=== PATIENT | male | born 1960 | race Caucasian/White ===

== ENCOUNTER 2018-09-14 12:08 | Emergency (ER) | payer BC ==
[~2018-09-14] VITALS: Ht 185.4 cm; Wt 83.9 kg
--- NOTE | 2018-09-14 13:20 | ED General ---
General Chief Complaint: Dizziness/Syncope Stated Complaint: WAS UNRESPONSIVE Source of Information: Patient Exam Limitations: No Limitations History of Present Illness Date Seen by Provider: Sep 14, 2018 Time Seen by Provider: 13:17 Initial Comments To ER per private vehicle accompanied by his with reports of a episode of loss of consciousness. His picked him up from work at shortly after 11, they then ran several errands. She had to go get groceries. When she got out from getting groceries she states that she looked over at her and he was about to light up a cigarette. Immediately after that his head slumped forward and he was unable to be aroused for about 5 minutes. Upon awakening spontaneously he stated that he "didn't feel right". This occurred at about noon today. He's never had this before. He feels completely normal at this time. He denies any sensation of palpitations shortness of breath chest pain or headache immediately prior to the loss of consciousness. He states that it's been a long week at work and he felt tired. He takes no medications. He does smoke 1 pack of cigarettes daily and he does drink 2-6 beers every day. Timing/Duration: 1 Hour Severity: Moderate Associated Systoms: No Chest Pain, No Cough, No Diaphoresis, No Fever/Chills, No Headaches, No Loss of Appetite, No Malaise, No Nausea/Vomiting, No Rash, No Seizure, No Shortness of Air; Syncope; No Weakness Allergies and Home Medications Patient Home Medication List Home Medication List Reviewed: Yes Review of Systems Review of Systems Constitutional: see HPI EENTM: see HPI Respiratory: no symptoms reported Cardiovascular: no symptoms reported Genitourinary: no symptoms reported Musculoskeletal: no symptoms reported Skin: no symptoms reported Psychiatric/Neurological: See HPI; Denies Tremors Hematologic/Lymphatic: No Symptoms Reported Immunological/Allergic: no symptoms reported Physical Exam Vital Signs Vital Signs - First Documented 09/14/18 13:15 Temp 97.4 Pulse 71 Resp 20 B/P (MAP) 171/97 (121) Pulse Ox 98 O2 Delivery Room Air Capillary Refill : Height, Weight, BMI Height: '" Weight: lbs. oz. kg; BMI Method: General Appearance: No Apparent Distress, WD/WN Eyes: Bilateral Eye Normal Inspection, Bilateral Eye PERRL, Bilateral Eye EOMI HEENT: PERRL/EOMI, TMs Normal Neck: Full Range of Motion, Normal Inspection Respiratory: No Accessory Muscle Use, No Respiratory Distress Cardiovascular: Regular Rate, Rhythm, Normal Peripheral Pulses Gastrointestinal: Normal Bowel Sounds, Non Tender, Soft Extremity: Normal Capillary Refill, Normal Inspection Neurologic/Psychiatric: Alert, Oriented x3 Skin: Normal Color, Warm/Dry Progress/Results/Core Measures Suspected Sepsis SIRS Temperature: Pulse: Respiratory Rate: Laboratory Tests 09/14/18 13:41: White Blood Count 8.8 Blood Pressure / Mean: Laboratory Tests 09/14/18 13:41: Creatinine 0.91, Platelet Count 224, Total Bilirubin 0.5 Results/Orders Lab Results Laboratory Tests Test 09/14/18 13:41 Range/Units White Blood Count 8.8 4.3-11.0 10^3/uL Red Blood Count 4.24 L 4.35-5.85 10^6/uL Hemoglobin 14.7 13.3-17.7 G/DL Hematocrit 41 40-54 % Mean Corpuscular Volume 97 80-99 FL Mean Corpuscular Hemoglobin 35 H 25-34 PG Mean Corpuscular Hemoglobin Concent 36 32-36 G/DL Red Cell Distribution Width 13.2 10.0-14.5 % Platelet Count 224 130-400 10^3/uL Mean Platelet Volume 9.5 7.4-10.4 FL Neutrophils (%) (Auto) 70 42-75 % Lymphocytes (%) (Auto) 20 12-44 % Monocytes (%) (Auto) 8 0-12 % Eosinophils (%) (Auto) 2 0-10 % Basophils (%) (Auto) 0 0-10 % Neutrophils # (Auto) 6.1 1.8-7.8 X 10^3 Lymphocytes # (Auto) 1.8 1.0-4.0 X 10^3 Monocytes # (Auto) 0.7 0.0-1.0 X 10^3 Eosinophils # (Auto) 0.1 0.0-0.3 10^3/uL Basophils # (Auto) 0.0 0.0-0.1 10^3/uL Sodium Level 138 135-145 MMOL/L Potassium Level 4.1 3.6-5.0 MMOL/L Chloride Level 103 98-107 MMOL/L Carbon Dioxide Level 22 21-32 MMOL/L Anion Gap 13 5-14 MMOL/L Blood Urea Nitrogen 12 7-18 MG/DL Creatinine 0.91 0.60-1.30 MG/DL Estimat Glomerular Filtration Rate > 60 BUN/Creatinine Ratio 13 Glucose Level 92 70-105 MG/DL Calcium Level 9.1 8.5-10.1 MG/DL Corrected Calcium 8.9 8.5-10.1 MG/DL Magnesium Level 2.2 1.8-2.4 MG/DL Total Bilirubin 0.5 0.1-1.0 MG/DL Aspartate Amino Transf (AST/SGOT) 22 5-34 U/L Alanine Aminotransferase (ALT/SGPT) 19 0-55 U/L Alkaline Phosphatase 48 40-136 U/L Total Protein 7.4 6.4-8.2 GM/DL Albumin 4.3 3.2-4.5 GM/DL My Orders Orders - HOANG MADDOX APRN Cbc With Automated Diff (09/14/18 13:16) Comprehensive Metabolic Panel (09/14/18 13:16) Magnesium (09/14/18 13:16) Ekg Tracing (09/14/18 13:16) Troponin I (09/14/18 13:16) Iv Heplock-Insert (Order) (09/14/18 13:16) Ct Head Wo (09/14/18 13:16) Chest 1 View, Ap/Pa Only (09/14/18 13:16) Alcohol (09/14/18 13:16) Vital Signs/I&O 09/14/18 13:15 Temp 97.4 Pulse 71 Resp 20 B/P (MAP) 171/97 (121) Pulse Ox 98 O2 Delivery Room Air Capillary Refill : Departure Impression Primary Impression: History of loss of consciousness Disposition: 01 HOME, SELF-CARE Condition: Stable Departure-Patient Inst. Decision time for Depature: 14:16 Referrals: NO,LOCAL PHYSICIAN (PCP/Family) Primary Care Physician Patient Instructions: Syncope (Fainting) (DC) Add. Discharge Instructions: 1. Return to ER for any concerns 2. Follow-up with your doctor next week 3. All discharge instructions reviewed with patient and/or family. Voiced understanding. HOANG MADDOX APRN Sep 14, 2018 13:20
[2018-09-14 13:51] LABS: BASOPHILS % (AUTO) 0 % (0-10); EOSINOPHILS # (AUTO) 0.1 10^3/uL (0.0-0.3); EOSINOPHILS % (AUTO) 2 % (0-10); HEMATOCRIT 41 % (40-54); HEMOGLOBIN 14.7 G/DL (13.3-17.7); LYMPHOCYTES # (AUTO) 1.8 X 10^3 (1.0-4.0); LYMPHOCYTES % (AUTO) 20 % (12-44); MEAN CORPUSCULAR HEMOGLOBIN 35 PG (25-34); MEAN CORPUSCULAR HGB CONC 36 G/DL (32-36); MEAN CORPUSCULAR VOLUME 97 FL (80-99); MEAN PLATELET VOLUME 9.5 FL (7.4-10.4); MONOCYTES # (AUTO) 0.7 X 10^3 (0.0-1.0); MONOCYTES % (AUTO) 8 % (0-12); NEUTROPHILS # (AUTO) 6.1 X 10^3 (1.8-7.8); NEUTROPHILS % (AUTO) 70 % (42-75); PLATELET COUNT 224 10^3/uL (130-400); RED BLOOD COUNT 4.24 10^6/uL (4.35-5.85); RED CELL DISTRIBUTION WIDTH 13.2 % (10.0-14.5); WHITE BLOOD COUNT 8.8 10^3/uL (4.3-11.0)
--- NOTE | 2018-09-14 13:59 | Diagnostic Imaging Report ---
INDICATION: Unresponsive episode. TECHNIQUE: Routine non contrast-enhanced axial images were obtained from the skull base to the vertex. COMPARISON: None. FINDINGS: The ventricles and cortical sulci are diffusely prominent, compatible with age-related volume loss. Prominent CSF spaces also noted within the posterior fossa. There is no midline shift or mass-effect. No acute intra-axial hemorrhage is seen. There are no abnormal areas of increased or decreased density to suggest acute hemorrhage or edema. No extra-axial masses or collections are present. The bony calvarium is intact. The visualized paranasal sinuses are unremarkable. The mastoid air cells are clear. IMPRESSION: 1. No acute intracranial abnormality. No CT evidence of mass, acute infarct or intracranial hemorrhage. 2. Background of age-related parenchymal volume loss. 3. Prominent CSF space within the posterior fossa. Differential includes arachnoid cyst or ender cisterna magna. Dictated by: Dictated on workstation # [id number]
--- NOTE | 2018-09-14 14:05 | Diagnostic Imaging Report ---
INDICATION: Syncopal episode, passed out.. TECHNIQUE: Single view chest 2:17 PM. CORRELATION STUDY: None FINDINGS: The heart size, mediastinal configuration and pulmonary vascularity are within normal limits. The lungs are clear with no consolidating infiltrate. There is no significant effusion or pneumothorax. IMPRESSION: 1. Negative appearing portable chest. Dictated by: Dictated on workstation # [id number]
[2018-09-14 14:15] LABS: ALANINE AMINOTRANSFERASE 19 U/L (0-55); ALBUMIN 4.3 GM/DL (3.2-4.5); ALKALINE PHOSPHATASE 48 U/L (40-136); BILIRUBIN,TOTAL 0.5 MG/DL (0.1-1.0); BUN/CREATININE RATIO 13; CALCIUM 9.1 MG/DL (8.5-10.1); CARBON DIOXIDE 22 MMOL/L (21-32); CHLORIDE 103 MMOL/L (98-107); CREATININE SERUM 0.91 MG/DL (0.60-1.30); GFR ESTIMATED > 60; GLUCOSE 92 MG/DL (70-105); MAGNESIUM 2.2 MG/DL (1.8-2.4); POTASSIUM 4.1 MMOL/L (3.6-5.0); SODIUM 138 MMOL/L (135-145); TOTAL PROTEIN 7.4 GM/DL (6.4-8.2)
[2018-09-14 14:45] VITALS: BP 172/102
== END 2018-09-14 14:45 | disposition home or self-care (01) ==
LOC: EDUNIT# 12:08 → ER 12:09
DX: R55 Syncope and collapse (principal); F17.210 Nicotine dependence, cigarettes, uncomplicated
CPT/HCPCS: 36415; 70450; 71045; 80053; 80320; 83735; 84484; 85025; 93005

== ENCOUNTER 2021-03-22 09:00 | Day surgery (SDC) | payer SELFPAY ==
[2021-03-22] VITALS (12 sets, daily range): BP systolic 124–167; BP diastolic 77–114
[~2021-03-22] VITALS: Ht 188 cm; Wt 86.5 kg
[2021-03-22 07:23] LABS: HEMOGLOBIN 16.6 g/dL (13.3-17.7); MEAN PLATELET VOLUME 9.8 fL (9.0-12.2); WHITE BLOOD COUNT 8.8 10^3/uL (4.3-11.0)
--- NOTE | 2021-03-22 07:48 | Diagnostic Imaging Report ---
INDICATION: Hypertension, ischemic foot, abnormal ankle-brachial indices COMPARISON: 09/14/2018 TECHNIQUE: Single radiograph of the chest dated 03/22/2021. FINDINGS: The cardiac silhouette is within normal limits in size. No significant pulmonary vascular congestion. The lungs are clear. No pleural effusion. No pneumothorax. No acute osseous abnormality. IMPRESSION: No acute cardiopulmonary abnormality. Dictated by: Dictated on workstation # [id number]
[2021-03-22 07:54] LABS: PROTHROMBIN TIME PATIENT 13.9 SEC (12.2-14.7)
[2021-03-22 07:59] LABS: ALANINE AMINOTRANSFERASE 20 U/L (0-55); ALBUMIN 4.2 GM/DL (3.2-4.5); ALKALINE PHOSPHATASE 62 U/L (40-136); BILIRUBIN,TOTAL 0.7 MG/DL (0.1-1.0); BUN/CREATININE RATIO 12; CALCIUM 9.4 MG/DL (8.5-10.1); CARBON DIOXIDE 25 MMOL/L (21-32); CHLORIDE 101 MMOL/L (98-107); CHOLESTEROL 174 MG/DL (< 200); GFR ESTIMATED > 60; GLUCOSE 128 MG/DL (70-105); HDL CHOLESTEROL 43 MG/DL (40-60); POTASSIUM 4.1 MMOL/L (3.6-5.0); SODIUM 138 MMOL/L (135-145); TOTAL PROTEIN 7.6 GM/DL (6.4-8.2); TRIGLYCERIDES 120 MG/DL (<150); VLDL CHOLESTEROL 24 MG/DL (5-40)
--- NOTE | 2021-03-22 08:44 | Conscious Sedation/ASA ---
Conscious Sedation Pre-Proced Time 08:44 ASA Score 3 For ASA 3 and 4: Consider anesthesia and medical clearance. Also, for patients with a history of failed moderate sedation consider anesthesia. Airway Lungs Heart ASA score ASA 1: a normal healthy patient ASA 2: a patient with a mild systemic disease (mid diabetes, controlled hypertension, obesity x ASA 3: a patient with a severe systemic disease that limits activity (angina, COPD, prior Myocardial infarction) ASA 4: a patient with an incapacitating disease that is a constant threat to life (CHF, renal failure) ASA 5: a moribund patient not expected to survive 24 hrs. (ruptured aneurysm) ASA 6: a declared brain- patient whose organs are being harvested. For emergent operations, add the letter E after the classification Mallampati Classification Grade 3 Sedation Plan Analgesia, Amnesia, Plan communicated to team members, Discussed options with patient/fam, Discussed risks with patient/fam The patient is an appropriate candidate to undergo the planned procedure, sedation, and anesthesia. The patient immediately re-assessed prior to indication. KELI PERAZA MD Mar 22, 2021 08:44
[~2021-03-22 09:00] MED LIST: ASPI-1238 PO; ATOR80TA76 PO; CLOP75TA69 PO; HEParin (CATH LAB) 2,000 ML IV ONE; HEParin 1000 UNIT/ML (10ML VIAL) FOR BOLUS ONE; LIDOCAINE 1% INJ 20 ML 20 ML VIAL ONE; LISI1TAB46 PO; MIDAZOLAM 5 MG/5 ML (VERSED) VIAL ONE; NITRO DRIP 25000 MCG/D5W 250 ML IV ONE; NS IV 1000 ML 1,000 ML IV SCH; NS IV 1000 ML 1,000 ML ONE; fentaNYL INJ 100 MCG/2 ML AMP ONE
[2021-03-22] MEDS ORDERED: HEParin (CATH LAB) 1,000 ML IV ONE (09:26)
[2021-03-22] MEDS ORDERED: CLOPIDOGREL 300 MG (PLAVIX) TABLET PO ONE (10:53)
[2021-03-22] MEDS ORDERED: ASPIRIN 325 MG (5 GR) TABLET ONE (10:53)
[2021-03-22] MEDS: NS IV 1000 ML 1,000 ML IV SCH ×2 (11:15→21:16)
[2021-03-22] MEDS ORDERED: PATIENT MAY USE OWN MEDS, ALL PO SCH (11:15)
--- NOTE | 2021-03-22 11:36 | Peripheral Report ---
Peripheral Report Physician (s)/Architecture Analyst (s) Physician KELI PERAZA MD Pre-Procedure Diagnosis Pre-Procedure Diagnosis: Critical limb ischemia Post-Procedure Note Procedure Start Date: Mar 22, 2021 Name of Procedure: Bilateral lower extremity runoff Third order Additional imaging x3 Stenting to the left tibioperoneal trunk Stenting to the left popliteal artery Stenting to the left SFA Findings/Procedure Note PROCEDURE NOTE: 60-year-old gentleman with significant claudication, severely abnormal [place], referred for evaluation scheduled for peripheral angiogram and runoff After explaining the procedure to the patient, all pros and cons were explained, all questions were answered. The patient signed the consent and then he was placed on the cardiac catheterization laboratory. The patient was placed on the cardiac catheterization laboratory. Groin was prepped SL fashion local anesthesia was used. Sheath placed in the right femoral artery, runoff to the right leg was done through the right femoral artery and I did DSA evaluation to the right trifurcation of the tibioperoneal trunk and DSA evaluation at the level of the right foot. Rim catheter was used for angiogram to evaluate the left leg, I was unable to cross due to tortuosity I used UF catheter and advanced a Storq wire to the common femoral artery then placed a straight catheter and did runoff to the left leg. Percutaneous intervention Patient has total occlusion of the left SFA, given 5000 unit heparin then 2000 then 3000 units heparin, long 6 [place] sheath was advanced to the common femoral artery, I had difficulty crossing with the command 18, I was able to cross to the mid SFA with command 14, I advanced mini catheter over command 14 to the mid SFA and still could not supported subsequently I exchanged the mini 14 to mini 18 and exchanged a wire to command 18 and I was able to cross smoothly to the peroneal artery, mini catheter advanced and manual injection angiogram showed good position then I placed back the command 18 and started with [place] 4 x 60 with multiple inflation then I used 5 x 100 with multiple inflation did not reestablish flow I upgraded to 5 x 150 which showed some improvement in the flow, patient has severe recoiling and severe restenosis the lesion were not resistant but continue to collapse the artery after removal of the balloon I knew at that point that patient will require multiple stenting I use the longest stent available starting at the tibioperoneal trunk extending to the popliteal artery using supera 5 x 120 then another 5 x 120 then 5.5 x 150 all overlapping stent then I used absolute Pro 6 x 100 extending from the ostium of the SFA 2 overlapping with the last supera postdilated everything with 5 x 200 balloon. Angiogram showed excellent results Sheath was exchanged to a short 6 Sw[place] sheath then closure device deployed FINDINGS: Right lower extremity: Total occlusion of the right SFA down to the trifurcation, reconstruction of the trifurcation with moderate to severe disease beyond the trifurcation Left lower extremity: Total occlusion of the left SFA, popliteal and tibioperoneal trunk, complex intervention with multiple balloon angioplasty then deployment of multiple overlapping stent starting at the ostium of the SFA with absolute Pro 6 x 100 followed by 3 Supera stents 5.5 x 150 followed by two 5 x 120 with excellent results. Below the trifurcation the peroneal artery has severe diffuse disease, the anterior tibial artery has 2 segment of moderate to severe lesion proximally than good flow down to the foot and the posterior tibial artery has moderate lesions proximally with good flow down to the foot CONCLUSIONS: 1. Total occlusion of the left SFA, popliteal artery and tibioperoneal trunk, complex intervention with multiple balloon deployment then deployment of 4 stents as described above. 2. On the left side severe disease at the proximal anterior tibial artery, moderate disease at the proximal posterior tibial artery and severe diffuse disease at the peroneal artery 3. Total occlusion of the right SFA down to the tibioperoneal trunk with moderate to severe disease below the trifurcation DISCUSSION AND RECOMMENDATIONS: Continue to maximize medical therapy, planning to bring the patient back for intervention on the right leg Anesthesia Type: Conscious Sedation Estimated blood loss (mL): 50 ml Contrast Amount: 140 ml Total Radiation Dose: 837 mGy Post-Procedure Diagnosis Post-operative diagnosis: Critical limb ischemia Peripheral arterial disease Hypertension Hyperlipidemia Tobaccoism KELI PERAZA MD Mar 22, 2021 11:36
[2021-03-22] MEDS ORDERED: fentaNYL INJ 100 MCG/2 ML AMP ONE (12:10)
[2021-03-22] MEDS ORDERED: fentaNYL INJ 100 MCG/2 ML AMP IVP ONE (12:30)
[2021-03-22] MEDS ORDERED: oxyCODONE/APAP 5/325MG (PERCOCET 5) TABLET PO PRN (15:45)
[2021-03-23 03:16] LABS: MEAN PLATELET VOLUME 9.5 fL (9.0-12.2); WHITE BLOOD COUNT 8.6 10^3/uL (4.3-11.0)
[2021-03-23 03:29] LABS: BUN/CREATININE RATIO 13; CARBON DIOXIDE 24 MMOL/L (21-32); CHLORIDE 101 MMOL/L (98-107); CREATININE SERUM 1.06 MG/DL (0.60-1.30); GFR ESTIMATED > 60; GLUCOSE 120 MG/DL (70-105); POTASSIUM 3.9 MMOL/L (3.6-5.0); SODIUM 136 MMOL/L (135-145)
[2021-03-23 06:02] VITALS: BP 149/118
[2021-03-23] MEDS ORDERED: PANT40SU PO (06:34)
--- NOTE | 2021-03-23 06:35 | Discharge Inst-Post CATH ---
Discharge Inst-CATH/EP Problems Reviewed?: Yes Post Cardiac Cath/EP D/C Inst Follow Up/Plan Appointment with Dr Silverman in 1-2 weeks <b>CARDIAC CATH/EP PROCEDURE DISCHARGE INSTRUCTIONS</b> ACTIVITY * Go Home directly and rest. * Limit activity of the leg (or wrist if it was used) for 7 days including aerobics, swimming, jogging, bicycling, etc. * Restrict stair-climbing for 7 days if possible, if not, climb up with your non-cath leg, then bring together on the same step. * Avoid lifting, pushing, pulling or excessive movement of the affected extremity for 7 days. * Customary sexual activity may be resumed after 2 days-use caution not to use a position that strains or causes pain to the affected extremity. * No driving for 24 hours. * NO SMOKING. * Avoid straining for bowel movements for 7 days. * Gentle walking on level ground is allowed. * Returning to work will depend on the type of procedure and the results. Your doctor will discuss this with you. CALL YOUR DOCTOR FOR ANY OF THE FOLLOWING: *If bleeding from the puncture site occurs- Apply gentle pressure to site with clean cloth and call your doctor or EMS. * If a knot or lump forms under the skin, increases in size, or causes pain. * If bruising appears to be worsening or moving further down your leg instead of disappearing. * Temperature above 101 F. CARE OF YOUR GROIN INCISION; * Bruising or purple discoloration of the skin near the puncture site is common. * You may shower only, no bathtub bathing for 5 days. Be careful to avoid slipping as your leg may feel stiff. * If a closure device was used on your femoral artery, please see the attached guide regarding care of the device and your leg. * Leave dressing on FOR 24 hours. CARE OF YOUR WRIST INCISION; * Bruising or purple discoloration of the skin near the puncture site is common. * You may shower. * DO NOT submerge wrist. * Leave dressing on FOR 24 hours. KELI SILVERMAN MD Mar 23, 2021 06:35
[2021-03-23 07:54] VITALS: BP 180/92
[2021-03-23] MEDS: NS IV 1000 ML 1,000 ML IV SCH (08:08)
--- NOTE | 2021-03-23 08:20 | Cardiology Progress Note ---
Subjective Date Seen by Provider: Mar 23, 2021 Time Seen by Provider: 08:17 Subjective/Events-last exam Patient was seen at bedside, laying down in bed, complaining of back pain. Some numbness and tingling in the left leg Review of Systems General: No Chills, No Night Sweats, No Fatigue, No Malaise, No Appetite, No Other HEENT: No Head Aches, No Visual Changes, No Eye Pain, No Ear Pain, No Dysphasia, No Sinus Congestion, No Post Nasal Drip, No Sore Throat, No Other Pulmonary: No Dyspnea, No Cough, No Pleuritic Chest Pain, No Other Cardiovascular: No: Chest Pain, Palpitations, Orthopnea, Paroxysmal Noc. Dyspnea, Edema, Lt Headedness, Other Objective-Cardiology Exam Last Set of Vital Signs Vital Signs 03/23/21 03/23/21 07:54 08:00 Temp 36.8 Pulse 85 Resp 18 B/P (MAP) 180/92 (121) Pulse Ox 98 O2 Delivery Room Air Capillary Refill : Greater Than 3 Seconds I&O Intake and Output 03/23/21 00:00 Intake Total 2100 ml Output Total 1400 ml Balance 700 ml Intake Oral 1100 ml IV Total 1000 ml Output Urine Total 1400 ml General: Alert, Oriented X3, Cooperative HEENT: Atraumatic, PERRLA Neck: Supple, No JVD, No Thyromegaly Lungs: Clear to Auscultation, Normal Air Movement Heart: Regular Rate, Normal S1, Normal S2, No Murmurs Abdomen: Normal Bowel Sounds, Soft, No Tenderness, No Hepatosplenomegaly, No Masses Extremities: No Clubbing, No Edema, No Tenderness/Swelling, Other (Palpable dorsalis pedis pulse on the left, groin is healing well) Skin: No Rashes, No Breakdown, No Significant Lesion Neuro: Normal Gait, Normal Speech, Strength at 5/5 X4 Ext, Normal Tone, Sensation Intact Psych/Mental Status: Mental Status NL, Mood NL Results Lab Laboratory Tests 03/23/21 03:05 A/P-Cardiology Admission Diagnosis Critical limb ischemia Peripheral arterial disease Hypertension Hyperlipidemia Assessment/Plan Critical limb ischemia, status post complex intervention on the left leg with excellent results. Has total occlusion of the right SFA which will be operated on at a later point Peripheral arterial disease, angiogram results from March 22, 2021 1. Total occlusion of the left SFA, popliteal artery and tibioperoneal trunk, complex intervention with multiple balloon deployment then deployment of 4 stents. 2. On the left side severe disease at the proximal anterior tibial artery, moderate disease at the proximal posterior tibial artery and severe diffuse disease at the peroneal artery 3. Total occlusion of the right SFA down to the tibioperoneal trunk with moderate to severe disease below the trifurcation Hypertension, monitor blood pressure Hyperlipidemia, started on Lipitor 80 mg daily, monitor lipids Back pain KELI PERAZA MD Mar 23, 2021 08:20
[2021-03-23] MEDS ORDERED: CLOPIDOGREL 75 MG (PLAVIX) TABLET PO SCH (09:00)
[2021-03-23] MEDS ORDERED: LISINOPRIL-HCTZ 20-12.5 MG TAB PO SCH (09:00)
[2021-03-23] MEDS ORDERED: lisINopril 20 MG (PRINIVIL) TABLET PO SCH (09:00)
[2021-03-23] MEDS ORDERED: ASPIRIN E.C. 81 MG (ECOTRIN) TAB PO SCH (09:00)
[2021-03-23 09:15] VITALS: BP 180/92
== END 2021-03-23 09:16 | disposition home or self-care (01) ==
LOC: EDSTATUS 09:00 → CATH 09:00 → ICU 11:23 → CATH 11:23 → ICU 03-23 09:16 → CATH 03-23 09:16
PROVIDERS: ATTEND Internal Medicine Cardiovascular Disease
DX: I10 Essential (primary) hypertension (principal); I99.8 Other disorder of circulatory system; R94.30 Abnormal result of cardiovascular function study, unspecified
CPT/HCPCS: 36247; 36248; 37221; 37230; 71045; 75716; 80048; 80053; 80061; 85027; 85610; 85730; 87081; 93306; C1725 ×5; C1760; C1769 ×4; C1876 ×3; C1887 ×3; C1894 ×2; 36415

== ENCOUNTER 2021-03-31 08:57 | Day surgery (SDC) | payer SELFPAY ==
[2021-03-31] VITALS (12 sets, daily range): BP systolic 122–161; BP diastolic 67–94
[~2021-03-31] VITALS: Ht 185 cm; Wt 88.0 kg
[~2021-03-31 08:57] MED LIST changes: -HEParin (CATH LAB) 2,000 ML IV ONE; -HEParin 1000 UNIT/ML (10ML VIAL) FOR BOLUS ONE; -LIDOCAINE 1% INJ 20 ML 20 ML VIAL ONE; -MIDAZOLAM 5 MG/5 ML (VERSED) VIAL ONE; -NITRO DRIP 25000 MCG/D5W 250 ML IV ONE; -NS IV 1000 ML 1,000 ML IV SCH; -NS IV 1000 ML 1,000 ML ONE; +PANT40SU PO; -fentaNYL INJ 100 MCG/2 ML AMP ONE
[2021-03-31] MEDS ORDERED: HEParin (CATH LAB) 2,000 ML IV ONE (09:31)
[2021-03-31] MEDS ORDERED: LIDOCAINE 1% INJ 20 ML 20 ML VIAL ONE (09:31)
[2021-03-31] MEDS ORDERED: NS IV 1000 ML 1,000 ML ONE (09:32)
[2021-03-31] MEDS: NS IV 1000 ML 1,000 ML IV SCH ×3 (10:11→22:07)
[2021-03-31 10:13] LABS: HEMOGLOBIN 15.5 g/dL (13.3-17.7); MEAN PLATELET VOLUME 9.4 fL (9.0-12.2); WHITE BLOOD COUNT 10.5 10^3/uL (4.3-11.0)
--- NOTE | 2021-03-31 10:17 | Diagnostic Imaging Report ---
EXAMINATION: Portable erect AP chest at 10:11 AM. INDICATION: Peripheral vascular disease. FINDINGS: There is shallow inspiration when compared to the prior exam of 03/22/2021. Allowing for this technical factor, the heart size is within normal limits and the lungs are clear. There is no sign of failure, pneumonia, or pleural effusion to indicate an acute abnormality. The mediastinum is not widened. The osseous structures are intact. IMPRESSION: Allowing for the shallow degree of inspiration, there is no evidence for an acute cardiopulmonary abnormality. Dictated by: Dictated on workstation # [id number]
[2021-03-31 10:27] LABS: INR 0.9 (0.8-1.4); PROTHROMBIN TIME PATIENT 12.9 SEC (12.2-14.7)
[2021-03-31 10:34] LABS: ALBUMIN 4.4 GM/DL (3.2-4.5); BILIRUBIN,TOTAL 0.6 MG/DL (0.1-1.0); CALCIUM 9.6 MG/DL (8.5-10.1); CREATININE SERUM 1.33 MG/DL (0.60-1.30); POTASSIUM 4.3 MMOL/L (3.6-5.0); TOTAL PROTEIN 8.4 GM/DL (6.4-8.2)
[2021-03-31] MEDS ORDERED: MIDAZOLAM 5 MG/5 ML (VERSED) VIAL ONE (10:59)
[2021-03-31] MEDS ORDERED: fentaNYL INJ 100 MCG/2 ML AMP ONE ×2 (11:00→12:41)
[2021-03-31] MEDS ORDERED: HEParin 1000 UNIT/ML (10ML VIAL) FOR BOLUS ONE (11:00)
--- NOTE | 2021-03-31 11:31 | Conscious Sedation/ASA ---
Conscious Sedation Pre-Proced Time 11:31 ASA Score 3 For ASA 3 and 4: Consider anesthesia and medical clearance. Also, for patients with a history of failed moderate sedation consider anesthesia. Airway Lungs Heart ASA score ASA 1: a normal healthy patient ASA 2: a patient with a mild systemic disease (mid diabetes, controlled hypertension, obesity x ASA 3: a patient with a severe systemic disease that limits activity (angina, COPD, prior Myocardial infarction) ASA 4: a patient with an incapacitating disease that is a constant threat to life (CHF, renal failure) ASA 5: a moribund patient not expected to survive 24 hrs. (ruptured aneurysm) ASA 6: a declared brain- patient whose organs are being harvested. For emergent operations, add the letter E after the classification Mallampati Classification Grade 3 Sedation Plan Analgesia, Amnesia, Plan communicated to team members, Discussed options with patient/fam, Discussed risks with patient/fam The patient is an appropriate candidate to undergo the planned procedure, sedation, and anesthesia. The patient immediately re-assessed prior to indication. KELI PERAZA MD March 31, 2021 11:31
[2021-03-31] MEDS ORDERED: NITRO DRIP 25000 MCG/D5W 250 ML IV ONE (12:30)
[2021-03-31] MEDS ORDERED: MIDAZOLAM 2 MG/2 ML (VERSED) VIAL ONE (12:41)
[2021-03-31] MEDS ORDERED: HEParin (CATH LAB) 1,000 ML IV ONE (13:10)
[2021-03-31] MEDS ORDERED: PATIENT MAY USE OWN MEDS, ALL PO SCH (14:00)
[2021-03-31] MEDS ORDERED: ASPIRIN 325 MG (5 GR) TABLET ONE (14:06)
[2021-03-31] MEDS ORDERED: CLOPIDOGREL 75 MG (PLAVIX) TABLET ONE (14:06)
--- NOTE | 2021-03-31 14:06 | Peripheral Report ---
Peripheral Report Physician (s)/Institute Scientist (s) Physician KELI PERAZA MD Pre-Procedure Diagnosis Pre-Procedure Diagnosis: Critical limb ischemia Post-Procedure Note Procedure Start Date: March 31, 2021 Name of Procedure: Abdominal aortogram with bilateral runoff Stenting of the right SFA and right popliteal artery Findings/Procedure Note PROCEDURE NOTE: 60 years old gentleman with known severe peripheral arterial disease, underwent extensive stenting of the left SFA, popliteal and tibioperoneal trunk with good results, continue to have numbness and pain in his leg. He was scheduled for intervention on the right side but I decided to evaluate the left leg at the same time. After explaining the procedure to the patient, all pros and cons were explained, all questions were answered. The patient signed the consent and then he was placed on the cardiac catheterization laboratory. The patient was placed on the cardiac catheterization laboratory. Groin was prepped SL fashion local anesthesia was used. Sheath placed in the left femoral artery, runoff to the left leg was done through the sheath then using a rim catheter I was able to cross over and advanced a Storq wire then a Glidewire to improve the position of the straight catheter, angiogram was done then Storq wire was advanced and exchanged the sheath into 45 6 [place] sheath. Patient will receive 5000 units of heparin followed by 2000 units of heparin. Command 18 wire was used to cross the total occlusion of the right SFA, I used mini 18 catheter, advanced to the popliteal artery, did multiple ballooning using 4.0, 5.0 and 6.0 balloons, there was a lesion across the knee in the popliteal artery that continue to recoil. I reestablish flow, diffuse disease and some dissection was noted. Decided to proceed with overlapping stents from the knee up to the hip. I started with Supera 5.5 x 120 followed by 6 x 150 then 6 x 150 then absolute Pro 7 x 60 all deployed and postdilated with 6.0 balloon. Angiogram showed excellent results. The sheath was exchanged into a short 6 [place] sheath then I advanced a pigtail catheter to the abdominal aorta and abdominal aortogram was done then the catheter was removed sheath was removed and closure device deployed. FINDINGS: Abdominal aortogram: Mild atherosclerotic plaques. No dissection or aneurysm, the left renal artery is normal the right renal artery has moderate stenosis at its proximal portion Left lower extremity runoff, patent stent from the ostium of the SFA down to the tibioperoneal trunk, severe stenosis at the proximal anterior tibial artery, goo d flow through the posterior tibial artery. Right lower extremity: Total occlusion of the SFA, complex intervention with multiple balloon angioplasty then for stent overlapping deployment as described above with excellent results. CONCLUSIONS: 1. Total occlusion of the right SFA and popliteal artery, complex intervention with deployment of 4 overlapping stent starting distally with Supera 5.5 x 120 followed by 6 x 150 and another 6 x 150 then Absolute Pro 7 x 60 extending to the ostium of the SFA with excellent result, good three-vessel runoff below the bifurcation. 2. Patent stents in the left SFA, popliteal and peroneal artery, known severe stenosis at the anterior tibial artery, good flow through the posterior tibial and peroneal artery on the left side 3. Moderate ostial/proximal right renal artery stenosis 4. Mild atherosclerotic plaques in the abdominal aorta. No dissection or aneurysm DISCUSSION AND RECOMMENDATIONS: Continue to maximize medical therapy Anesthesia Type: Conscious Sedation Estimated blood loss (mL): 50 ml Contrast Amount: 90 ml Total Radiation Dose: 375 mGy Post-Procedure Diagnosis Post-operative diagnosis: Critical limb ischemia Peripheral arterial disease Hypertension Hyperlipidemia KELI PERAZA MD March 31, 2021 2:06 pm
[2021-03-31] MEDS ORDERED: oxyCODONE/APAP 5/325MG (PERCOCET 5) TABLET ONE (17:13)
[2021-03-31] MEDS ORDERED: oxyCODONE/APAP 5/325MG (PERCOCET 5) TABLET PO PRN (17:30)
[2021-04-01 00:22] VITALS: BP 149/84
[2021-04-01] MEDS: NS IV 1000 ML 1,000 ML IV SCH ×2 (00:22→05:04)
[2021-04-01 04:00] VITALS: BP 151/86
[2021-04-01 06:38] LABS: HEMOGLOBIN 12.2 g/dL (13.3-17.7); MEAN PLATELET VOLUME 9.5 fL (9.0-12.2); WHITE BLOOD COUNT 10.5 10^3/uL (4.3-11.0)
[2021-04-01 06:49] LABS: CHLORIDE 99 MMOL/L (98-107); POTASSIUM 4.1 MMOL/L (3.6-5.0); SODIUM 131 MMOL/L (135-145)
[2021-04-01 06:50] LABS: CALCIUM 8.6 MG/DL (8.5-10.1)
[2021-04-01 06:51] LABS: GLUCOSE 118 MG/DL (70-105)
[2021-04-01 06:52] LABS: CARBON DIOXIDE 23 MMOL/L (21-32)
[2021-04-01 06:55] LABS: BUN/CREATININE RATIO 12; CREATININE SERUM 1.03 MG/DL (0.60-1.30); GFR ESTIMATED > 60
--- NOTE | 2021-04-01 07:41 | Discharge Inst-Post CATH ---
Discharge Inst-CATH/EP Problems Reviewed?: Yes Post Cardiac Cath/EP D/C Inst Follow Up/Plan Appointment with Dr. Silverman's office in 2 weeks <b>CARDIAC CATH/EP PROCEDURE DISCHARGE INSTRUCTIONS</b> ACTIVITY * Go Home directly and rest. * Limit activity of the leg (or wrist if it was used) for 7 days including aerobics, swimming, jogging, bicycling, etc. * Restrict stair-climbing for 7 days if possible, if not, climb up with your non-cath leg, then bring together on the same step. * Avoid lifting, pushing, pulling or excessive movement of the affected extremity for 7 days. * Customary sexual activity may be resumed after 2 days-use caution not to use a position that strains or causes pain to the affected extremity. * No driving for 24 hours. * NO SMOKING. * Avoid straining for bowel movements for 7 days. * Gentle walking on level ground is allowed. * Returning to work will depend on the type of procedure and the results. Your doctor will discuss this with you. CALL YOUR DOCTOR FOR ANY OF THE FOLLOWING: *If bleeding from the puncture site occurs- Apply gentle pressure to site with clean cloth and call your doctor or EMS. * If a knot or lump forms under the skin, increases in size, or causes pain. * If bruising appears to be worsening or moving further down your leg instead of disappearing. * Temperature above 101 F. CARE OF YOUR GROIN INCISION; * Bruising or purple discoloration of the skin near the puncture site is common. * You may shower only, no bathtub bathing for 5 days. Be careful to avoid slipping as your leg may feel stiff. * If a closure device was used on your femoral artery, please see the attached guide regarding care of the device and your leg. * Leave dressing on FOR 24 hours. CARE OF YOUR WRIST INCISION; * Bruising or purple discoloration of the skin near the puncture site is common. * You may shower. * DO NOT submerge wrist. * Leave dressing on FOR 24 hours. KELI SILVERMAN MD April 01, 2021 07:40
[2021-04-01 07:54] VITALS: BP 151/74
--- NOTE | 2021-04-01 07:56 | Cardiology Progress Note ---
Subjective Date Seen by Provider: April 01, 2021 Time Seen by Provider: 07:55 Subjective/Events-last exam Patient is laying down in bed, feeling better, having discomfort in his groin Review of Systems General: No Chills, No Night Sweats, No Fatigue, No Malaise, No Appetite, No Other HEENT: No Head Aches, No Visual Changes, No Eye Pain, No Ear Pain, No Dysphasia, No Sinus Congestion, No Post Nasal Drip, No Sore Throat, No Other Pulmonary: No Dyspnea, No Cough, No Pleuritic Chest Pain, No Other Cardiovascular: No: Chest Pain, Palpitations, Orthopnea, Paroxysmal Noc. Dyspnea, Edema, Lt Headedness, Other Objective-Cardiology Exam Last Set of Vital Signs Vital Signs 04/01/21 07:54 Temp 37.0 Pulse 90 Resp 16 B/P (MAP) 151/74 (99) Pulse Ox 95 O2 Delivery Room Air Capillary Refill : Less Than 3 Seconds I&O Intake and Output 04/01/21 00:00 Intake Total 340 ml Output Total 450 ml Balance -110 ml Intake Oral 340 ml Output Urine Total 450 ml General: Alert, Oriented X3, Cooperative HEENT: Atraumatic, PERRLA Neck: Supple, No JVD, No Thyromegaly Lungs: Clear to Auscultation, Normal Air Movement Heart: Regular Rate, Normal S1, Normal S2, No Murmurs Abdomen: Normal Bowel Sounds, Soft, No Tenderness, No Hepatosplenomegaly, No M asses Extremities: No Clubbing, No Cyanosis, No Edema, Normal Pulses, No Tende rness/Swelling Skin: No Rashes, No Breakdown, No Significant Lesion Neuro: Normal Gait, Normal Speech, Strength at 5/5 X4 Ext, Normal Tone, Sensation Intact Psych/Mental Status: Mental Status NL, Mood NL Results Lab Laboratory Tests 03/31/21 10:04 04/01/21 06:30 A/P-Cardiology Admission Diagnosis Peripheral arterial disease Hypertension Hyperlipidemia Tobaccoism Assessment/Plan Peripheral arterial disease, extensive intervention on both legs, palpable posterior tibial pulse bilaterally 1. Total occlusion of the right SFA and popliteal artery, complex intervention with deployment of 4 overlapping stent starting distally with Supera 5.5 x 120 followed by 6 x 150 and another 6 x 150 then Absolute Pro 7 x 60 extending to the ostium of the SFA with excellent result, good three-vessel runoff below the bifurcation. 2. Patent stents in the left SFA, popliteal and peroneal artery, known severe stenosis at the anterior tibial artery, good flow through the posterior tibial and peroneal artery on the left side 3. Moderate ostial/proximal right renal artery stenosis 4. Mild atherosclerotic plaques in the abdominal aorta. No dissection or aneurysm Hypertension, controlled monitor blood pressure Hyperlipidemia, monitor lipids Tobaccoism, educated on smoking cessation KELI PERAZA MD April 01, 2021 07:56
[2021-04-01] MEDS ORDERED: ASPIRIN E.C. 81 MG (ECOTRIN) TAB PO SCH (09:00)
[2021-04-01] MEDS ORDERED: PANTOPRAZOLE 40 MG (PROTONIX) TAB PO SCH (09:00)
[2021-04-01] MEDS ORDERED: lisINopril 20 MG (PRINIVIL) TABLET PO SCH (09:00)
[2021-04-01] MEDS ORDERED: CLOPIDOGREL 75 MG (PLAVIX) TABLET PO SCH (09:00)
[2021-04-01] MEDS ORDERED: [UNRECOGNIZED DRUG - REMARK] PO SCH (09:00)
== END 2021-04-01 08:50 | disposition home or self-care (01) ==
LOC: CATH 08:57 → ICU 14:19 → CATH 04-01 08:50
PROVIDERS: ATTEND Internal Medicine Cardiovascular Disease
DX: I70.223 Atherosclerosis of native arteries of extremities with rest pain, bilateral legs (principal); I70.1 Atherosclerosis of renal artery; I70.0 Atherosclerosis of aorta; I10 Essential (primary) hypertension; E78.2 Mixed hyperlipidemia; F17.210 Nicotine dependence, cigarettes, uncomplicated; Z79.82 Long term (current) use of aspirin; Z79.899 Other long term (current) drug therapy; Z83.3 Family history of diabetes mellitus
CPT/HCPCS: 37226; 71045; 75630; 80053; 80061; 85347; 85610; 85730; 87081; C1725 ×4; C1760; C1769 ×5; C1876 ×4; C1887 ×2; C1894 ×3; 36415; 80048; 85027

== ENCOUNTER 2021-04-08 05:58 | Emergency (ER) | payer OTHER ==
[~2021-04-08] VITALS: Ht 182.8 cm; Wt 88.0 kg
[2021-04-08 06:19] LABS: BASOPHILS # (AUTO) 0.1 10^3/uL (0.0-0.1); BASOPHILS % (AUTO) 1 % (0-10); EOSINOPHILS # (AUTO) 0.4 10^3/uL (0.0-0.3); EOSINOPHILS % (AUTO) 3 % (0-10); HEMATOCRIT 44 % (40-54); HEMOGLOBIN 14.9 g/dL (13.3-17.7); LYMPHOCYTES # (AUTO) 1.7 10^3/uL (1.0-4.0); LYMPHOCYTES % (AUTO) 15 % (12-44); MEAN CORPUSCULAR HEMOGLOBIN 32 pg (25-34); MEAN CORPUSCULAR HGB CONC 34 g/dL (32-36); MEAN CORPUSCULAR VOLUME 93 fL (80-99); MONOCYTES # (AUTO) 0.9 10^3/uL (0.0-1.0); MONOCYTES % (AUTO) 8 % (0-12); NEUTROPHILS # (AUTO) 8.6 10^3/uL (1.8-7.8); NEUTROPHILS % (AUTO) 73 % (42-75); PLATELET COUNT 365 10^3/uL (130-400); WHITE BLOOD COUNT 11.7 10^3/uL (4.3-11.0)
--- NOTE | 2021-04-08 06:24 | ED Lower Extremity ---
General Chief Complaint: Post OP Complications/Pain Stated Complaint: PT STS BLEEDING FROM STINT Source: patient Exam Limitations: no limitations History of Present Illness Date Seen by Provider: April 08, 2021 Time Seen by Provider: 06:03 Initial Comments The patient and his significant other report to the ER by private conveyance with chief complaint that he took the dressing off of a left lower extremity catheterization site this morning from 1 week ago and noticed some bright red blood on the dressing. He decided to come up here and have it taken a look at. He is having no chest pain shortness of air. He had some stents placed in his left leg 1 week ago and 2 weeks ago had his right leg done. He has no fever chills nausea or purulent discharge. Allergies and Home Medications Allergies Coded Allergies: Penicillins (Verified Allergy, Unknown, 03/22/21) Home Medications Aspirin 81 Mg Tablet., 81 MG PO DAILY, (Reported) Atorvastatin Calcium 80 Mg Tablet, 80 MG PO HS, (Reported) Clopidogrel Bisulfate 75 Mg Tablet, 75 MG PO DAILY, (Reported) Lisinopril/Hydrochlorothiazide 1 Each Tablet, 1 EACH PO DAILY, (Reported) Pantoprazole Sodium 40 Mg Granpkt, 40 MG PO DAILY Prescribed by: KELI SILVERMAN on 03/23/21 0634 Patient Home Medication List Home Medication List Reviewed: Yes Review of Systems Constitutional: No chills, No diaphoresis EENTM: No ear discharge, No ear pain Respiratory: No cough, No short of breath Cardiovascular: No chest pain, No palpitations Gastrointestinal: No abdominal pain, No nausea, No vomiting Genitourinary: No discharge, No dysuria All Other Systems Reviewed Negative Unless Noted: Yes Past Rrhywik-Ymjzgk-Tixbas Hx Patient Social History Alcohol Use: Occasionally Uses Alcohol Beverage of Choice: Beer Drug of Choice: [place]IJ[place] OCCASIONALLY Smoking Status: Current Everyday Smoker Type Used: Cigarettes Past Medical History Tonsillectomy Respiratory: No Cardiac: Yes Hypertension Neurological: No Genitourinary: No Gastrointestinal: No Cancer: No Physical Exam Vital Signs Vital Signs - First Documented 04/08/21 06:06 Temp 35.5 Pulse 108 Resp 20 B/P (MAP) 175/110 (131) Pulse Ox 98 O2 Delivery Room Air Capillary Refill : Height, Weight, BMI Height: 6'1.00" Weight: 185lbs. oz. 83.790830jq; 25.71 BMI Method:Stated General Appearance: WD/WN, no apparent distress HEENT: PERRL/EOMI, pharynx normal Neck: full range of motion, normal inspection Cardiovascular: normal peripheral pulses, regular rate, rhythm Respiratory: no respiratory distress, no accessory muscle use Neurologic/Psychiatric: alert, normal mood/affect, oriented x 3 Skin: ecchymosis (Slight), other (At the site of insertion is a small drop of sanguinous drainage, thin.) Progress/Results/Core Measures Results/Orders Lab Results Laboratory Tests Test 04/08/21 06:13 Range/Units White Blood Count 11.7 H 4.3-11.0 10^3/uL Red Blood Count 4.66 4.30-5.52 10^6/uL Hemoglobin 14.9 # 13.3-17.7 g/dL Hematocrit 44 40-54 % Mean Corpuscular Volume 93 80-99 fL Mean Corpuscular Hemoglobin 32 25-34 pg Mean Corpuscular Hemoglobin Concent 34 32-36 g/dL Red Cell Distribution Width 12.4 10.0-14.5 % Platelet Count 365 130-400 10^3/uL Mean Platelet Volume 9.0 9.0-12.2 fL Immature Granulocyte % (Auto) 0 % Neutrophils (%) (Auto) 73 42-75 % Lymphocytes (%) (Auto) 15 12-44 % Monocytes (%) (Auto) 8 0-12 % Eosinophils (%) (Auto) 3 0-10 % Basophils (%) (Auto) 1 0-10 % Neutrophils # (Auto) 8.6 H 1.8-7.8 10^3/uL Lymphocytes # (Auto) 1.7 1.0-4.0 10^3/uL Monocytes # (Auto) 0.9 0.0-1.0 10^3/uL Eosinophils # (Auto) 0.4 H 0.0-0.3 10^3/uL Basophils # (Auto) 0.1 0.0-0.1 10^3/uL Immature Granulocyte # (Auto) 0.1 0.0-0.1 10^3/uL Sodium Level 134 L 135-145 MMOL/L Potassium Level 4.0 3.6-5.0 MMOL/L Chloride Level 95 L 98-107 MMOL/L Carbon Dioxide Level 23 21-32 MMOL/L Anion Gap 16 H 5-14 MMOL/L Blood Urea Nitrogen 16 7-18 MG/DL Creatinine 1.32 H 0.60-1.30 MG/DL Estimat Glomerular Filtration Rate 56 BUN/Creatinine Ratio 12 Glucose Level 136 H 70-105 MG/DL Calcium Level 9.6 8.5-10.1 MG/DL Corrected Calcium 9.5 8.5-10.1 MG/DL Total Bilirubin 0.6 0.1-1.0 MG/DL Aspartate Amino Transf (AST/SGOT) 22 5-34 U/L Alanine Aminotransferase (ALT/SGPT) 19 0-55 U/L Alkaline Phosphatase 68 40-136 U/L Total Protein 8.3 H 6.4-8.2 GM/DL Albumin 4.1 3.2-4.5 GM/DL My Orders Orders - RIAN TUCKER Cbc With Automated Diff (04/08/21 06:09) Comprehensive Metabolic Panel (04/08/21 06:09) Ed Iv/Invasive Line Start (04/08/21 06:09) Us Left Low Ext Arterial [id number] (04/08/21 06:11) Vital Signs/I&O 04/08/21 04/08/21 06:06 08:30 Temp 35.5 Pulse 108 83 Resp 20 18 B/P (MAP) 175/110 (131) 134/98 Pulse Ox 98 99 O2 Delivery Room Air Progress Progress Note : Time: 06:12 Progress Note Patient has a palpable hematoma at the site which is expected. There is no fluctuance or pulsatile mass. There is not a high degree of suspicion for bleeding at the site of the vessel however we will get an ultrasound shortly. We will check some labs for hemoglobin. Diagnostic Imaging Diagonstic Imaging: Ultrasound Plain Films/CT/US/NM/MRI: leg (Left inguinal) Comments No evidence of extravasation/pseudoaneurysm. Small fluid collection likely hematoma. 1 x 2 cm. [facility], [place] NAME: VERONA KNUTSON [facility] REC#: [id number] PT STATUS: DEP ER : 1960 PHYSICIAN: RIAN TUCKER MD ADMIT DATE: 04/08/21/ER Signed Date of Exam:04/08/21 US LEFT LOW EXT ARTERIAL [id number] TECHNIQUE: Focused, upper ultrasound was performed of the left groin. REASON FOR EXAM: Recent heart catheterization. Bleeding from the puncture site in the left groin. Evaluate for pseudoaneurysm. COMPARISON: None. FINDINGS: No evidence of pseudoaneurysm formation is seen in the left groin. A hematoma is seen in the left groin measuring 1.9 x 0.9 x 1.5 cm. There is patency of the common femoral artery and common femoral vein with normal Doppler filling. Normal triphasic waveforms are seen in the common femoral artery. IMPRESSION: 1. No evidence of pseudoaneurysm in the left groin. 2. Small hematoma in the left groin likely representing the patient's history of recent heart catheterization. Dictated by: Dictated on workstation # [id number] Dict: 04/08/2159 Trans: 04/08/21919 [id number] Interpreted by: BJORN HOPKINS DO Electronically signed by: BJORN HOPKINS DO 04/08/21919 Reviewed: Reviewed by Me Departure Impression Primary Impression: Hematoma Disposition: 01 HOME, SELF-CARE Condition: Stable Departure-Patient Inst. Decision time for Depature: 08:15 Referrals: KELI SILVERMAN MD NO,LOCAL PHYSICIAN (PCP) Primary Care Physician Patient Instructions: HEMATOMA Add. Discharge Instructions: You have a small collection of fluid likely old blood from the catheter site which is expected after a catheterization. This is just started to drain out and will typically drain a little bit over the next day or 2 and then stop. The rest will be resorbed internally by your body on its own over the next couple weeks. There is no cause for alarm just yet. You can put a small gauze dressing over the site to catch the drainage and change it daily. Keep the site clean with regular soap and water only. If you have concerns you can call Dr. Silverman and follow-up with him. If you are having significant bleeding, chest pain or other worrisome symptoms then you should return to the nearest ER promptly. Work/School Note: Work Release Form Date Seen in the Emergency Department: April 08, 2021 Return to Work: April 12, 2021 Restrictions: No Restrictions Copy Copies To 1: KELI SILVERMAN MD, TITUS J April 08, 2021 06:24
[2021-04-08 06:35] LABS: ALBUMIN 4.1 GM/DL (3.2-4.5)
[2021-04-08 06:36] LABS: CALCIUM 9.6 MG/DL (8.5-10.1)
[2021-04-08 06:38] LABS: TOTAL PROTEIN 8.3 GM/DL (6.4-8.2)
[2021-04-08 06:39] LABS: BILIRUBIN,TOTAL 0.6 MG/DL (0.1-1.0)
[2021-04-08 06:41] LABS: CREATININE SERUM 1.32 MG/DL (0.60-1.30)
[2021-04-08 08:30] VITALS: BP 134/98
--- NOTE | 2021-04-08 09:02 | Diagnostic Imaging Report ---
TECHNIQUE: Focused, upper ultrasound was performed of the left groin. REASON FOR EXAM: Recent heart catheterization. Bleeding from the puncture site in the left groin. Evaluate for pseudoaneurysm. COMPARISON: None. FINDINGS: No evidence of pseudoaneurysm formation is seen in the left groin. A hematoma is seen in the left groin measuring 1.9 x 0.9 x 1.5 cm. There is patency of the common femoral artery and common femoral vein with normal Doppler filling. Normal triphasic waveforms are seen in the common femoral artery. IMPRESSION: 1. No evidence of pseudoaneurysm in the left groin. 2. Small hematoma in the left groin likely representing the patient's history of recent heart catheterization. Dictated by: Dictated on workstation # [id number]
== END 2021-04-08 08:30 | disposition home or self-care (01) ==
LOC: EDUNIT# 05:58 → ER 06:02
DX: S80.12XA Contusion of left lower leg, initial encounter (principal); I10 Essential (primary) hypertension; F17.210 Nicotine dependence, cigarettes, uncomplicated; Z88.0 Allergy status to penicillin; Z79.82 Long term (current) use of aspirin; Z79.899 Other long term (current) drug therapy; X58.XXXA Exposure to other specified factors, initial encounter
CPT/HCPCS: 36415; 80053; 85025; 93926